=== PATIENT | female | born 1995 | race Two or more races ===

== ENCOUNTER 2018-05-20 19:23 | Emergency (ER) | payer OTHER ==
[2018-05-20 20:16] LABS: ABSOLUTE BASOPHILS # (AUTO) 0.1 10^3/uL (0.0-0.2); ABSOLUTE EOSINOPHILS # (AUTO) 0.3 10^3/uL (0.0-0.6); ABSOLUTE LYMPHOCYTES (AUTO) 2.5 10^3/uL (0.5-4.7); ABSOLUTE MONOCYTES (AUTO) 0.6 10^3/uL (0.1-1.4); ABSOLUTE NEUT (AUTO) 5.9 10^3/uL (1.7-8.2); BASOPHILS % (AUTO) 0.5 % (0-2); EOSINOPHILS % (AUTO) 3.1 % (0-6); HEMATOCRIT 38.6 % (36.0-47.0); HEMOGLOBIN 13.5 g/dL (12.0-15.5); MEAN CORPUSCULAR HEMOGLOBIN 29.7 pg (27.0-33.4); MEAN CORPUSCULAR HGB CONC 34.9 g/dL (32.0-36.0); MEAN CORPUSCULAR VOLUME 85 fl (80-97); MONOCYTES % (AUTO) 6.5 % (3-13); PLATELET COUNT 177 10^3/uL (150-450); RED BLOOD COUNT 4.53 10^6/uL (3.72-5.28); RED CELL DISTRIBUTION WIDTH 14.1 % (11.5-14.0); SEGMENTED NEUTROPHILS % (AUTO) 62.9 % (42-78); TOTAL CELLS COUNTED % (AUTO) 100 %; WHITE BLOOD COUNT 9.4 10^3/uL (4.0-10.5)
[2018-05-20 20:19] LABS: APPEARANCE,URINE CLEAR; BILIRUBIN,URINE NEGATIVE (NEGATIVE); COLOR,URINE YELLOW; GLUCOSE, URINE NEGATIVE (NEGATIVE); KETONES,URINE NEGATIVE (NEGATIVE); LEUKOCYTE ESTERASE,URINE NEGATIVE (NEGATIVE); NITRITE,URINE NEGATIVE (NEGATIVE); PROTEIN,URINE NEGATIVE (NEGATIVE); URINE SPECIFIC GRAVITY 1.008; UROBILINOGEN,URINE NEGATIVE mg/dL (<2.0)
[2018-05-20 20:40] LABS: ALANINE AMINOTRANSFERASE 29 U/L (9-52); ALBUMIN 4.1 g/dL (3.5-5.0); ALKALINE PHOSPHATASE 54 U/L (38-126); ANION GAP 12 (5-19); ASPARTATE AMINO TRANSFERASE 20 U/L (14-36); BILIRUBIN,DIRECT 0.2 mg/dL (0.0-0.4); BILIRUBIN,TOTAL 0.2 mg/dL (0.2-1.3); BLOOD UREA NITROGEN 8 mg/dL (7-20); CALCIUM 9.3 mg/dL (8.4-10.2); CARBON DIOXIDE 21 mmol/L (22-30); CHLORIDE 106 mmol/L (98-107); GLUCOSE 81 mg/dL (75-110); POTASSIUM 3.8 mmol/L (3.6-5.0); SODIUM 139.1 mmol/L (137-145)
[2018-05-20] MEDS ORDERED: ONDANSETRON ODT 4 MG TAB (6 TAB/ER DISP) PO PRN (21:13)
[2018-05-20] MEDS ORDERED: METRONIDAZOLE 500 MG TABLET PO ONE (21:13)
[2018-05-20] MEDS ORDERED: NORMAL SALINE 1000 ML 1,000 ML IV ONE (21:14)
[2018-05-20] MEDS ORDERED: METOCLOPRAMIDE HCL INJ/PF 10 MG/2 ML SDV IV ONE (21:14)
[2018-05-20 22:06] VITALS: BP 105/62
--- NOTE | 2018-05-20 22:45 | ER Document Report ---
ED General - General Chief Complaint: Abdominal Pain Stated Complaint: CHEST PRESSURE Time Seen by Provider: 05/20/18 19:43 TRAVEL OUTSIDE OF THE [place] IN LAST 30 DAYS: No - HPI Patient complains to provider of: Chest pressure Notes: Patient coming in for evaluation chest pressure right-sided abdominal pain. Patient is approximately 10 weeks . Patient states symptoms ongoing for greater than 48 hours. Patient states she has received care at the [facility] currently is on vitamins states slight nausea during this . Patient denies any vaginal bleeding or vaginal discharge. Patient states she has had a confirmatory ultrasound showing IUP. Patient has not been on any fertility medications. Denies fevers chills diarrhea. Patient denies any trauma. Patient denies any recent travel. Denies any shortness. No history cardiac disease or chest pathology. Patient states she does have asthma patient states she is been using her inhaler over the last few days however patient currently denies any issues - Related Data Allergies/Adverse Reactions: No Known Allergies Allergy (Verified 05/20/18 19:24) Past Medical History - Social History Smoking Status: Never Smoker Frequency of alcohol use: Rare Drug Abuse: None Family History: Reviewed & Not Pertinent Patient has suicidal ideation: No Patient has homicidal ideation: No Pulmonary Medical History: Reports: Hx Asthma Renal/ Medical History: Denies: Hx Peritoneal Dialysis Review of Systems - Review of Systems Constitutional: No symptoms reported EENT: No symptoms reported Cardiovascular: Chest pain - Chest pressure Respiratory: No symptoms reported Gastrointestinal: Abdominal pain Genitourinary: No symptoms reported Female Genitourinary: No symptoms reported Musculoskeletal: No symptoms reported Skin: No symptoms reported Hematologic/Lymphatic: No symptoms reported Neurological/Psychological: No symptoms reported -: Yes All other systems reviewed and negative Physical Exam - Vital signs Vitals: Temp Pulse BP Pulse Ox 98.5 F 88 112/69 97 05/20/18 19:32 05/20/18 19:32 05/20/18 19:32 05/20/18 19:32 Interpretation: Normal - General General appearance: Appears well, Alert - HEENT Head: Normocephalic, Atraumatic Eyes: Normal Pupils: PERRL - Respiratory Respiratory status: No respiratory distress Chest status: Nontender Breath sounds: Normal Chest palpation: Normal - Cardiovascular Rhythm: Regular Heart sounds: Normal auscultation Murmur: No - Abdominal Inspection: Normal Distension: No distension Bowel sounds: Normal Tenderness: Nontender Organomegaly: No organomegaly - Back Back: Normal, Nontender - Extremities General upper extremity: Normal inspection, Nontender, Normal color, Normal ROM , Normal temperature General lower extremity: Normal inspection, Nontender, Normal color, Normal ROM , Normal temperature, Normal weight bearing. No: Ai's sign - Neurological Neuro grossly intact: Yes Cognition: Normal Orientation: AAOx4 Arnold Coma Scale Eye Opening: Spontaneous Arnold Coma Scale Verbal: Oriented Arnold Coma Scale Motor: Obeys Commands Arnold Coma Scale Total: 15 Speech: Normal Motor strength normal: LUE, RUE, LLE, RLE Sensory: Normal - Psychological Associated symptoms: Normal affect, Normal mood - Skin Skin Temperature: Warm Skin Moisture: Dry Skin Color: Normal Course - Re-evaluation Re-evalutation: 05/21/18 01:58 Patient's physical examination does not reveal any signs pathology. Patient's laboratory studies does show some signs of slight dehydration possible etiology for the patient's complaint of abdominal pain could be round ligament pain. Bedside ultrasound that showed an IUP with heart rate of 162-158. Patient 's nausea is better after Reglan. Patient was given IV fluids and states generally feeling better after hydration. Patient was encouraged to follow-up with her [facility] [facility] prescription for Reglan will be given for nausea. Patient will be discharged home. The patient has atypical chest pain as the patient's chest pain is not suggestive of pulmonary embolus, cardiac ischemia, aortic dissection , or other serious etiology. Given the extremely low risk of these diagnoses further testing and evaluation for these possibilities does not appear to be indicated at this time. The patient has been instructed to return if the symptoms worsen or change in any way. The patient presents with abdominal pain without signs of peritonitis or other life-threatening or serious etiology. The patient appears stable for discharge and has been instructed to return immediately if the symptoms worsen in any way, or in 8-12hr if not improved for re-evaluation. The patient has been instructed to return if the symptoms worsen or change in any way. - Vital Signs Vital signs: Temp Pulse Resp BP Pulse Ox 98.3 F 68 20 105/62 100 05/20/18 22:04 05/20/18 22:04 05/20/18 22:04 05/20/18 22:04 07/05/18 22:04 - Laboratory Result Diagrams: 05/20/18 20:01 05/20/18 20:01 Laboratory results interpreted by me: 05/20/18 05/20/18 20:01 20:01 RDW 14.1 H Carbon Dioxide 21 L Creatinine 0.51 L Beta HCG, Quant 648781.00 H Discharge - Discharge Clinical Impression: Chest pressure, Nausea and vomiting during Abdominal pain during Qualifiers: Trimester: first trimester Qualified Code(s): O26.891 - Other specified related conditions, first trimester Condition: Good Disposition: HOME, SELF-CARE Instructions: Chest Wall Pain ([facility]), Dehydration ([facility]), Pelvic Pain in and Round Ligament Pain ([facility]), ([facility]) Additional Instructions: You have been seen for vomiting during . You should continue to drink plenty of water and consider taking a solution such as Pedialyte if your having difficulty eating food. Please return if you become unable to drink any fluids for more than 12 hours, urinate less than twice a day, pass out, or have any other symptoms that are concerning to you. For nausea and vomiting during I recomment: Start with 10-12.5 mg of pyridoxine (vitamin B6) three times a day for 2 days. If not fully effective, Increase to 12.5 mg of pyridoxine four times a day for 2 days. If not fully effective, Increase to 25 mg of pyridoxine three times a day for 2 days. If not fully effective, Continue 25 mg pyridoxine 3 times a day, and add 12.5 mg of doxylamine before bedtime each day for 2 days. If not fully effective, Continue 25 mg pyridoxine 3 times a day, and take 12.5 mg of doxylamine twice a day. If not fully effective, Continue 25 mg pyridoxine 3 times a day, and take 12.5 mg of doxylamine three times a day. If not fully effective, Continue 25 mg pyridoxine 3 times a day, and 12.5 mg of doxylamine 3 times a day , while adding Emetrol, one to two tablespoons (15-30 cc) taken once or twice a day as needed. (Emetrol is an [id number]-loc-beoibah mixture of sugar syrups and phosphoric acid [phosphorylated carbohydrate solution]) that acts by soothing the actual wall of the gastrointestinal tract). If not fully effective, Consult with your doctor. Laboratory studies today did not show any significant pathology. Ultrasound bedside shows normal heart rate. Please make sure you are drinking plenty water I do believe some of the pain years patient could be round ligament pain. This is exacerbated in the dehydrated state. He may also take Tylenol for your pain. Your EKG today is negative no signs of any worrisome etiology causing her chest pressure. Follow-up with your [facility] continue taking vitamins she can take the Reglan as prescribed for nausea. Return to the ER for any other concerns. Prescriptions: Metoclopramide HCl [Reglan] 5 mg PO Q6 #30 tablet Referrals: MELISSA HUGO MD [Primary Care Provider] - Follow up as needed
--- NOTE | 2018-05-21 07:17 | EKG REPORT ---
SEVERITY:- NORMAL ECG - SINUS RHYTHM : Confirmed by: Jono Gottlieb MD 21-May-2018 07:16:48
== END 2018-05-20 22:53 | disposition home or self-care (01) ==
LOC: EDBD 19:23 → ER 19:23
DX: O21.9 Vomiting of pregnancy, unspecified (principal); O26.891 Other specified pregnancy related conditions, first trimester; R07.9 Chest pain, unspecified; R10.9 Unspecified abdominal pain; Z3A.10 10 weeks gestation of pregnancy; J45.909 Unspecified asthma, uncomplicated
CPT/HCPCS: 93005; 99284; 96361; 96374; 86900; 86901; 36415; 84702; 85025; 80053; 81001; 93010; J2765; J7030